=== PATIENT | female | born 2000 | race Caucasian/White ===

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

== ENCOUNTER 2020-08-05 22:04 | Emergency (ER) | payer MEDICARE, MEDICAID ==
[~2020-08-05] VITALS: Ht 167.6 cm; Wt 81.6 kg
[~2020-08-05 22:04] MED LIST: SEPTDS PO
[2020-08-05] MEDS ORDERED: NAPROSYN500 MG PO (22:59)
== END 2020-08-05 23:40 | disposition home or self-care (01) ==
LOC: ED 22:04
DX: S83.91XA Sprain of unspecified site of right knee, initial encounter (principal); Z79.899 Other long term (current) drug therapy; Z98.890 Other specified postprocedural states; W19.XXXA Unspecified fall, initial encounter; Y93.89 Activity, other specified; Y92.89 Other specified places as the place of occurrence of the external cause; Y99.8 Other external cause status

== ENCOUNTER → 2021-01-09 | Outpatient (CLI) | payer MEDICARE, MEDICAID ==
[~2021-01-09] MED LIST changes: +NAPROSYN500 MG PO
== END | disposition home or self-care (01) ==
LOC: COVID19 15:20
PROVIDERS: ATTEND Podiatrist Foot & Ankle Surgery
DX: Z11.52 Encounter for screening for COVID-19 (principal)

== ENCOUNTER 2024-04-06 15:26 | Emergency (ER) | payer MEDICARE, MEDICAID ==
[~2024-04-06] VITALS: Ht 167.6 cm; Wt 83.7 kg
[2024-04-06 15:42] LABS: BASO % 0.3 % (0.0-1.0); EOS % 0.5 % (1.0-4.0); HEMATOCRIT 40.8 % (37.0-47.0); MEAN CELL VOLUME 81.6 fl (81.0-99.0); MEAN CORPUSCULAR HGB 25.8 pg (27.0-31.0); MEAN CORPUSCULAR HGB CONC 31.6 g/dl (33.0-37.0); MEAN PLATELET VOLUME 10.1 fl (9.6-12.3); MONO # 0.4 10*3/uL (0.1-1.0); MONO % 4.8 % (3.0-9.0); NEUT # 5.9 10*3/uL (2.3-7.9); NEUT % 75.1 % (47.0-73.0); PLATELET COUNT AUTOMATED 375 10*3/uL (130-400); RED CELL DISTRI WIDTH 14.7 % (0-14.5); WHITE BLOOD COUNT 7.9 10*3/uL (4.8-10.8)
[2024-04-06 16:08] LABS: BILIRUBIN Negative (Negative); BLOOD Negative (Negative); CLARITY Clear (Clear); COLOR Yellow (Yellow); GLUCOSE Negative (Negative); KETONE Negative (Negative); LEUKO ESTERASE 1+ (Negative); NITRITE Negative (Negative); PH 5.5 (4.5-8.0); UROBILINOGEN 0.2 E.U./dl (0.0-1.0)
[2024-04-06 16:09] LABS: BUN 10 mg/dl (9-23); CHLORIDE 103 mmol/L (98-107); CPK 107 U/L (34-171); POTASSIUM 3.7 mmol/L (3.4-5.1)
[2024-04-06 16:14] LABS: ETHYL ALCOHOL < 3.0 mg/dl (<3)
[2024-04-06 16:21] LABS: URINE AMPHETAMINES Negative (1000ng/ml); URINE BARBITURATES Negative (200ng/ml); URINE BENZODIAZEPINES Negative (200ng/ml); URINE CANNABINOIDS (THC) Positive (50ng/ml); URINE COCAINE Negative (300ng/ml); URINE METHADONE Negative (300ng/ml); URINE OPIATES Negative (300ng/ml); URINE PHENCYCLIDINE Negative (25ng/ml)
[2024-04-06 16:22] LABS: BACTERIA 1+; MUCOUS TRACE
[2024-04-06] MEDS ORDERED: AMOX-CLAV 875-1 EACH PO (17:14)
== END 2024-04-06 18:06 | disposition home or self-care (01) ==
LOC: ED 15:26
PROVIDERS: Nurse Practitioner
DX: F43.21 Adjustment disorder with depressed mood (principal); Z20.822 Contact with and (suspected) exposure to COVID-19; Z04.6 Encounter for general psychiatric examination, requested by authority; Z79.899 Other long term (current) drug therapy; Z91.040 Latex allergy status; Z98.890 Other specified postprocedural states; Z90.89 Acquired absence of other organs